=== PATIENT | female | born 1965 | race Caucasian/White ===

== ENCOUNTER → 2017-07-09 | Day surgery (SDC) | payer OTHER ==
[~2017-07-09] VITALS: Ht 157.5 cm; Wt 66.0 kg
[~2017-07-09] MED LIST: FENTAnyl 50 MCG/ML VIAL ONE; MIDAZOLAM 1 MG/ML 2 ML INJ ONE
[2017-07-09 12:14] VITALS: Ht 157.5 cm; Wt 66.0 kg
[2017-07-09 13:30] VITALS: BP 112/63; PULSE 59; RESP 19
--- NOTE | 2017-07-09 14:13 | OPPN ---
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
[2017-07-09 14:39] VITALS: BP 101/58; RESP 13
--- NOTE | 2017-07-09 15:46 | GILP ---
DATE OF PROCEDURE: NAME OF PROCEDURE: Colonoscopy. SURGEON: Heike Willoughby MD PREOPERATIVE DIAGNOSIS: Screening colonoscopy. POSTOPERATIVE DIAGNOSES 1. Colonoscopy all the way to the cecum. 2. Internal hemorrhoids. 3. No colon neoplasm was identified. INDICATION FOR THE PROCEDURE: Ms. Licha Cardenas is a 52-year-old female patient who was christine eduled for screening colonoscopy. The procedure and possible complications are well explained to the patient. The patient understood and consented to the procedure. DESCRIPTION OF PROCEDURE: Under the influence of fentanyl and Versed, the colonoscope was carefully introduced in the rectum and under direct vision, it was advanced all the way to the cecum. FINDINGS: The patient had internal hemorrhoids. No colon neoplasm was identified. She tolerated the procedure very well and there was no complication from the procedure. At the end of the procedure, she was awake with stable vital signs and she was discharged home to the care of h er family. IMPRESSION: 1. Colonoscopy all the way to the cecum. 2. Internal hemorrhoids. 3. No colon neoplasm was identified. PLAN: Next screening colonoscopy in 10 years. Dictated By: HEIKE SARAVIA/BONIFACIO Conf#: [id number] DID#: [id number]
== END | disposition home or self-care (01) ==
LOC: GIL 11:45
PROVIDERS: ATTEND Internal Medicine Gastroenterology
DX: Z12.11 Encounter for screening for malignant neoplasm of colon (principal); K64.8 Other hemorrhoids
CPT/HCPCS: 45378; J2250; J3010